=== PATIENT | female | born 1975 | race Caucasian/White ===

== ENCOUNTER 2019-12-01 08:49 | Emergency (ER) | payer SELFPAY ==
--- NOTE | 2019-12-01 09:12 | RAD ---
EXAM: Chest one view: HISTORY: Chest pain dizziness COMPARISON: None FINDINGS: Heart size: Within normal limits. Lungs: Clear of acute process. No evidence for confluent pneumonia, pleural effusion, acute edema, or pneumothorax, or other signifi cant acute process. IMPRESSION: No significant acute intrathoracic disease.
[2019-12-01 09:29] LABS: #Basophils 0.1 thou/uL (0.0-0.2); #Eosinphils 0.3 thou/uL (0.0-0.7); #Lymphocytes 1.4 thou/uL (1.20-3.40); #Monocytes 0.6 thou/uL (0.11-0.59); #Neutrophils 4.8 thou/uL (1.40-6.50); %Basophils 0.8 % (0.0-1.0); %Eosinophils 3.8 % (0.0-10.0); %Lymphocytes 19.8 % (21.0-51.0); %Monocytes 7.9 % (0.0-10.0); %Neutrophils 67.7 % (42.0-75.0); Hemoglobin 12.5 g/dL (12.0-16.0); Mean Corpuscular Hemoglobin 31.1 pg (27.0-31.0); Mean Corpuscular Volume 91.4 fL (78.0-98.0); Mean Platelet Volume 7.7 fL (7.4-10.4); Platelet Count 295 thou/uL (130-400); RBC Distribution Width 12.4 % (11.5-14.5); Red Blood Cell (RBC) Count 4.02 mill/uL (4.20-5.40); White Blood Cell (WBC) Count 7.1 thou/uL (4.8-10.8)
[2019-12-01] MEDS ORDERED: Aspirin Chewable 81 MG TAB ONE (09:43)
[2019-12-01 09:53] LABS: ALT (SGPT) 15 U/L (8-55); AST (SGOT) 22 U/L (5-34); Albumin 4.2 g/dL (3.5-5.0); Alkaline Phosphatase 79 U/L (40-110); Anion Gap 12 mmol/L (10-20); BUN (Urea Nitrogen) 18 mg/dL (7.0-18.7); Bilirubin, Total 0.4 mg/dL (0.2-1.2); CK (CPK) 215 U/L (29-168); Calc. Creatinine Clearance 0 mL/min (70-130); Calcium 8.9 mg/dL (7.8-10.44); Carbon Dioxide 27 mmol/L (22-29); Chloride 106 mmol/L (98-107); Estimated GFR-MDRD 72; Globulin 2.7 g/dL (2.4-3.5); Glucose 91 mg/dL (70-105); Lipase 30 U/L (8-78); Potassium 4.5 mmol/L (3.5-5.1); Protein, Total 6.9 g/dL (6.0-8.3); Sodium 140 mmol/L (136-145)
[2019-12-01 13:16] LABS: Troponin I Less than 0.010 ng/mL (< 0.028)
== END 2019-12-01 13:48 | disposition home or self-care (01) ==
LOC: ERS 08:49
DX: R07.9 Chest pain, unspecified (principal); F41.9 Anxiety disorder, unspecified
CPT/HCPCS: 36415; 71045; 80053; 82550; 83690; 84484; 85025; 93005

== ENCOUNTER 2019-12-12 14:32 | Emergency (ER) | payer SELFPAY ==
[2019-12-12] MEDS ORDERED: Ketorolac Tromethamine 30 MG/ML VIAL ONE (15:20)
== END 2019-12-12 15:18 | disposition home or self-care (01) ==
LOC: ERS 14:32
DX: M65.4 Radial styloid tenosynovitis [de Quervain] (principal); M79.81 Nontraumatic hematoma of soft tissue; F41.9 Anxiety disorder, unspecified; F32.9 Major depressive disorder, single episode, unspecified
CPT/HCPCS: 96372; 99283; J1885

== ENCOUNTER 2021-10-13 07:10 | Emergency (ER) | payer SELFPAY | END 2021-10-13 08:25 | disposition home or self-care (01) | LOC: ERS 07:10 | DX: S90.121A Contusion of right lesser toe(s) without damage to nail, initial encounter (principal); W22.8XXA Striking against or struck by other objects, initial encounter ==

== ENCOUNTER 2022-10-06 07:39 | Emergency (ER) | payer BC, SELFPAY | END 2022-10-06 08:22 | disposition home or self-care (01) | LOC: ERS 07:39 | DX: J06.9 Acute upper respiratory infection, unspecified (principal) | CPT/HCPCS: 99283 ==